=== PATIENT | female | born 1995 | race Caucasian/White ===

== ENCOUNTER 2016-05-01 06:39 | Emergency (ER) | payer MEDICAID ==
[2016-05-01 06:54] VITALS: TEMP 97.9; BMI 31.9
[2016-05-01 07:16] LABS: LEUKOCYTES/URINE 2+ (NEGATIVE); NITRITE/URINE NEG (NEGATIVE); URINE OCCULT BLOOD NEG (NEG/TRACE)
[2016-05-01 07:28] LABS: MPV 7.7 fL (7.4-10.4)
[2016-05-01] MEDS ORDERED: ONDANSETRON HCL 4 MG/2 ML VIAL IV ONE (07:29)
[2016-05-01] MEDS ORDERED: HYDROmorphone 1 MG INJECTION IV ONE (07:29)
[2016-05-01] MEDS ORDERED: LEVOFLOXACIN 750 MG TAB PO ONE (07:30)
[2016-05-01] MEDS ORDERED: NS 1,000 ML IV ONE (07:30)
--- NOTE | 2016-05-01 07:32 | EDPRACDOC ---
- General Information Chief Complaint: Abdominal Pain Stated Complaint: RT SIDE ABD PAIN/NAUSEA Time Seen by Provider: 05/01/16 07:08 Information Source: Patient Mode Of Arrival: Car Home Medications: Home Medications Ciprofloxacin HCl [Cipro] 500 mg PO BID #20 tab 05/01/16 Ondansetron [Zofran Odt] 4 mg PO Q6H PRN #20 tab.rapdis 05/01/16 Oxycodone HCl/Acetaminophen [Percocet 5-325 mg Tablet] 1 each PO Q4 #20 tablet 05/01/16 Allergies/Adverse Reactions: Allergies Allergy/AdvReac Type Severity Reaction Status Date / Time amoxicillin [Amoxicillin] Allergy Rash-Genera Verified 05/01/16 06:52 lized Penicillins Allergy Rash-Genera Verified 05/01/16 06:52 lized Sulfa (Sulfonamide Allergy Rash-Genera Verified 05/01/16 06:52 Antibiotics) lized - History of Present Illness Onset: 1 month HPI: PATIENT PRESENTS C/O ABDOMINAL PAIN RUQ THAT BEGAN MONTHS AGO. INTERMITTENT. ASSOCIATED WITH FOOD. NO PRIOR ABDOMINAL SURGERY. Pain Location: Reports: RUQ Pain Context: Reports: Spontaneous Pain Severity: Mild Pain Quality: Reports: Aching Pain Radiation: Reports: No Radiation Last Menstrual Period: unknown : No (6 weeks post ) Blood Type: O+ Adult Abdominal History: Denies: Abdominal Surgery Female Abdominal History: Denies: Abdominal Surgery Female Associated Signs & Symptoms: Reports: Nausea. Denies: Vomiting, Anorexia , Diarrhea, Melena Oral Intake: Normal Urinary Output: Normal ED Past Medical History - History Reviewed Yes Nurses notes reviewed and agree except as marked Travel Outside of [place] in the Last 3 Months?: No - Patient Medical History Psychological History: Denies: Depression Systemic History: Reports: Anemia - Family Medical History Reports: Diabetes (GRANDPARENTS), Cancer (FATHER), Cardiac Disorders ( GRANDPARENTS). Denies: Hypertension, Stroke - Social Medical History Smoking Status: Never smoker ETOH: None Substance Abuse: None Lives With: Family Lives In: Home EDM Review of Systems - Review of Systems ROS Negative Except as Marked: Yes All systems reviewed and were negative except as marked Constitutional: No Symptoms Reported. negative: Fever, Chills, Weakness, Fatigue, Loss of Appetite Eyes: No Symptoms Reported. negative: Redness, Blurred Vision, Double Vision, Discharge, Pain, Light Sensitive, Photophobia Ears: No Symptoms Reported. negative: Pain, Hearing Loss, Drainage, Ear Pulling Throat: No Symptoms Reported. negative: Pain, Swelling Nose: No Symptoms Reported. negative: Congestion, Bleeding, Discharge, Injection, Swelling, Deformity, Ecchymosis, Tender, Abrasion, Laceration Mouth: No Symptoms Reported. negative: Pain, Drooling Respiratory: No Symptoms Reported. negative: Cough, Brassy Cough, Barky Cough, Shortness of Breath, Wheezing, Hemoptysis Cardiovascular: No Symptoms Reported. negative: Chest Pain, Palpitations, Syncope, Edema, Orthopnea, PND, Skin Mottling, Cyanosis Gastrointestinal: Nausea, Pain. negative: Constipation, Diarrhea, Formula Intolerance, Melena, Vomiting Genitourinary: No Symptoms Reported. negative: Dysuria, Hematuria, Frequency, Discharge, Bleeding, Testicular Pain, Neurological: No Symptoms Reported. negative: Headache, Dizziness, Seizure, Numbness, Weakness, Speech Difficulty, Gait Difficulty Musculoskeletal: No Symptoms Reported. negative: Neck, Chestwall, Ribs, Back, Shoulder, Arm, Elbow, Forearm, Wrist, Hand, Pelvis, Hip, Femur, Knee, Leg, Ankle , Foot Integumentary: No Symptoms Reported. negative: Itching, Rash, Bruising, Wound Allergic/Immunologic: No Symptoms Reported. negative: Hives, Itching Hematologic: No Symptoms Reported. negative: Lymphadenopathy, Easy Bruising, Easy Bleeding Endocrine: No Symptoms Reported. negative: Weight Gain, Weight Loss Psychiatric: No Symptoms Reported. negative: Anxiety, Depression, Hallucinations, Insomnia, Suicidal - Physical Exam Constitutional: Alert (Awake), Distress (MILD) Oriented to: Time, Person, Place Last recorded Vital Signs: Last Vital Signs Temp 97.9 F 05/01/16 06:48 Pulse 65 05/01/16 08:43 Resp 16 05/01/16 08:43 BP 119/73 05/01/16 08:43 Pulse Ox 100 05/01/16 08:43 Oxygen Pulse Oxygen Saturation 100 O2 Device Room Air Oxygen Flow Rate Fraction of Inspired Oxygen ( FIO2) - HEENT Head: Normal ( normocephalic) Eye Exam: Normal (PERRL, EOMI, Sclera white) Oropharynx: Normal (Pharynx:Moist without exudate,Gums-no swelling) Tympanic Membrane: Normal ENT EAC: Normal TMJ: Normal Nose: No Symptoms Reported (septum midline) Neck: Normal (FROM, trachea at midline) - Respiratory/Cardiovascular Respiratory: Normal - CTA (BBS clear to auscultation without adventitious sounds ) Cardiovascular: Normal (RRR without murmur, gallop or rub) - GI Auscultation: Normal (NABS) Palpation: Normal (Soft,No rebound or guarding, non distended) Tenderness: Mild, RUQ. negative: Rebound, Rigidity Bach's Sign: Negative - Bladder: Normal External: Normal Vagina: Discharge (YELLOW) Cervix: Discharge (YELLOE) Uterus: Normal size Adnexa: Bilateral: Normal - Musculoskeletal Back: Normal (Non-Tender) Extremities: Normal (Normal tone, Pulses 2+ No cyanosis or edema, FROM) - Integumentary Skin: Normal, Warm, Dry Lymphatics: Normal (no adenopathy) - Neurologic Memory Impaired: Normal Motor Function: Normal (Normal tone, Pulses 2+ No cyanosis or edema, FROM) Cranial Nerve: Normal (CN II-X11 intact sensation, strength 5/5) Cerebellar: Normal Mood Description: Normal Perception: Normal - Results 05/01/16 07:09 05/01/16 07:09 WBC 10.3 xk/uL (3.8-10.8) 05/01/16 07:09 RBC 5.09 xM/uL (4.20-5.40) 05/01/16 07:09 Hgb 10.3 g/dL (12.0-16.0) L 05/01/16 07:09 Hct 33.7 % (36-47) L 05/01/16 07:09 MCV 66 fL (81-99) L 05/01/16 07:09 MCH 20.3 pg (27-32) L 05/01/16 07:09 MCHC 30.6 g/dl (33-36) L 05/01/16 07:09 RDW 15.5 % (11.5-14.5) H 05/01/16 07:09 Plt Count 336 xk/uL (130-400) 05/01/16 07:09 MPV 7.7 fL (7.4-10.4) 05/01/16 07:09 Neut % (Auto) Cancelled 05/01/16 07:09 Lymph % (Auto) Cancelled 05/01/16 07:09 Towns % (Auto) Cancelled 05/01/16 07:09 Eos % (Auto) Cancelled 05/01/16 07:09 Baso % (Auto) Cancelled 05/01/16 07:09 Absolute Neuts (auto) Cancelled 05/01/16 07:09 Absolute Lymphs (auto) Cancelled 05/01/16 07:09 Seg Neuts % (Manual) 77 % (45-76) H 05/01/16 07:09 Band Neutrophils % 0 % (0-5) 05/01/16 07:09 Lymphocytes % (Manual) 17 % (17-44) 05/01/16 07:09 Monocytes % (Manual) 4 % (0-10) 05/01/16 07:09 Eosinophils % (Manual) 1 % (0-5) 05/01/16 07:09 Basophils % (Manual) 1 % (0-2) 05/01/16 07:09 Absolute Neutrophils 7.93 xk/uL (1.7-8.2) 05/01/16 07:09 Absolute Lymphocytes 1.75 xk/uL (0.65-4.75) 05/01/16 07:09 Platelet Estimate Norm (NORMAL) 05/01/16 07:09 RBC Morphology 3+ micro 2+ hypo 1+ ellipto 1+ polychrom 05/01/16 07:09 RBC Morphology 3+ micro 2+ hypo 1+ ellipto 1+ polychrom 05/01/16 07:09 RBC Morphology 3+ micro 2+ hypo 1+ ellipto 1+ polychrom 05/01/16 07:09 RBC Morphology 3+ micro 2+ hypo 1+ ellipto 1+ polychrom 05/01/16 07:09 Sodium 143 mEq/L (137-146) 05/01/16 07:09 Potassium 3.6 mEq/L (3.5-5.1) 05/01/16 07:09 Chloride 106 mEq/L (98-107) 05/01/16 07:09 Carbon Dioxide 25 mMOL/L (22-33) 05/01/16 07:09 Anion Gap 16 mEq/L (8-16) 05/01/16 07:09 BUN 12 MG/DL (7-17) 05/01/16 07:09 Creatinine 0.60 MG/DL (0.52-1.04) 05/01/16 07:09 Estimated GFR (MDRD) > 60 mL/min (>=60) 05/01/16 07:09 Glucose 108 MG/DL (70-99) H 05/01/16 07:09 Calculated Osmolality 276 MOs/Kg (270-290) 05/01/16 07:09 Calcium 9.1 MG/DL (8.4-10.2) 05/01/16 07:09 Total Bilirubin 0.8 MG/DL (0.2-1.3) 05/01/16 07:09 AST 25 IU/L (14-36) 05/01/16 07:09 ALT 45 IU/L (9-52) 05/01/16 07:09 Alkaline Phosphatase 84 IU/L (38-126) 05/01/16 07:09 Total Protein 7.5 G/DL (6.3-8.2) 05/01/16 07:09 Albumin 4.3 G/DL (3.5-5.0) 05/01/16 07:09 Lipase 64 U/L (23-300) 05/01/16 07:09 Urine Color Yellow 05/01/16 07:00 Urine Clarity Cldy 05/01/16 07:00 Urine pH 5.0 (5.0-8.0) 05/01/16 07:00 Ur Specific [place] 1.030 (1.003-1.035) 05/01/16 07:00 Urine Protein Neg (NEG/TRACE) 05/01/16 07:00 Urine Glucose (UA) Neg (NEGATIVE) 05/01/16 07:00 Urine Ketones Neg (NEGATIVE) 05/01/16 07:00 Urine Occult Blood Neg (NEG/TRACE) 05/01/16 07:00 Urine Nitrite Neg (NEGATIVE) 05/01/16 07:00 Urine Bilirubin Neg (NEGATIVE) 05/01/16 07:00 Urine Urobilinogen <2.0 MG/DL (0-1) 05/01/16 07:00 Ur Leukocyte Esterase 2+ (NEGATIVE) H 05/01/16 07:00 Urine RBC 5-10 (0-5) H 05/01/16 07:00 Urine WBC 10-20 (0-5) H 05/01/16 07:00 Ur Epithelial Cells 4+ 05/01/16 07:00 Urine Bacteria 3+ (NEG/FEW) H 05/01/16 07:00 Urine Mucus Large (NEG/OCC) 05/01/16 07:00 Urine Test Neg (NEGATIVE) 05/01/16 07:00 Lab Results 05/01/16 05/01/16 05/01/16 07:09 07:09 07:00 WBC 10.3 RBC 5.09 Hgb 10.3 L Hct 33.7 L MCV 66 L MCH 20.3 L MCHC 30.6 L RDW 15.5 H Plt Count 336 MPV 7.7 Neut % (Auto) Cancelled Lymph % (Auto) Cancelled Towns % (Auto) Cancelled Eos % (Auto) Cancelled Baso % (Auto) Cancelled Absolute Neuts (auto) Cancelled Absolute Lymphs (auto) Cancelled Seg Neuts % (Manual) 77 H Band Neutrophils % 0 Lymphocytes % (Manual) 17 Monocytes % (Manual) 4 Eosinophils % (Manual) 1 Basophils % (Manual) 1 Absolute Neutrophils 7.93 Absolute Lymphocytes 1.75 Platelet Estimate Norm RBC Morphology 1+ polychrom Sodium 143 Potassium 3.6 Chloride 106 Carbon Dioxide 25 Anion Gap 16 BUN 12 Creatinine 0.60 Estimated GFR (MDRD) > 60 Glucose 108 H Calculated Osmolality 276 Calcium 9.1 Total Bilirubin 0.8 AST 25 ALT 45 Alkaline Phosphatase 84 Total Protein 7.5 Albumin 4.3 Lipase 64 Urine Color Yellow Urine Clarity Cldy Urine pH 5.0 Ur Specific [place] 1.030 Urine Protein Neg Urine Glucose (UA) Neg Urine Ketones Neg Urine Occult Blood Neg Urine Nitrite Neg Urine Bilirubin Neg Urine Urobilinogen <2.0 Ur Leukocyte Esterase 2+ H Urine RBC 5-10 H Urine WBC 10-20 H Ur Epithelial Cells 4+ Urine Bacteria 3+ H Urine Mucus Large Urine Test 05/01/16 07:00 WBC RBC Hgb Hct MCV MCH MCHC RDW Plt Count MPV Neut % (Auto) Lymph % (Auto) Towns % (Auto) Eos % (Auto) Baso % (Auto) Absolute Neuts (auto) Absolute Lymphs (auto) Seg Neuts % (Manual) Band Neutrophils % Lymphocytes % (Manual) Monocytes % (Manual) Eosinophils % (Manual) Basophils % (Manual) Absolute Neutrophils Absolute Lymphocytes Platelet Estimate RBC Morphology Sodium Potassium Chloride Carbon Dioxide Anion Gap BUN Creatinine Estimated GFR (MDRD) Glucose Calculated Osmolality Calcium Total Bilirubin AST ALT Alkaline Phosphatase Total Protein Albumin Lipase Urine Color Urine Clarity Urine pH Ur Specific [place] Urine Protein Urine Glucose (UA) Urine Ketones Urine Occult Blood Urine Nitrite Urine Bilirubin Urine Urobilinogen Ur Leukocyte Esterase Urine RBC Urine WBC Ur Epithelial Cells Urine Bacteria Urine Mucus Urine Test Neg Decision Time to Discharge: 08:58 - Departure Yes I personally saw and evaluated the patient. Disposition: Home Condition: Good Final Diagnosis: Biliary colic, Cervicitis UTI (urinary tract infection) Qualifiers: Urinary tract infection type: acute cystitis Hematuria presence: without hematuria Qualified Code(s): N30.00 - Acute cystitis without hematuria Instructions: Acute Abdominal Pain (ED), Urinary Tract Infection in Women (ED) , Dysuria, Biliary Colic (ED) Education/Counseling Given To: Patient Education/Counseling Given Regarding: Diagnosis, Treatment, Prognosis, Follow Up Referrals: Noah Pena MD [Primary Care Provider] - One Week King Marx MD [Staff Physician] - One Week Prescriptions: Ciprofloxacin HCl [Cipro] 500 mg PO BID #20 tab Ondansetron [Zofran Odt] 4 mg PO Q6H PRN #20 tab.rapdis PRN Reason: Nausea/Vomiting Oxycodone HCl/Acetaminophen [Percocet 5-325 mg Tablet] 1 each PO Q4 #20 tablet Additional Instructions: NO FATTY FOODS, FOLLOW UP WITH DR. PENA FOR HIDA SCAN
[2016-05-01 07:33] LABS: BLOOD UREA NITROGEN 12 MG/DL (7-17); CALCIUM 9.1 MG/DL (8.4-10.2); CALCULATED OSMOLALITY 276 MOs/Kg (270-290); CHLORIDE 106 mEq/L (98-107); GLUCOSE 108 MG/DL (70-99); SODIUM LEVEL 143 mEq/L (137-146); TOTAL PROTEIN 7.5 G/DL (6.3-8.2)
[2016-05-01 08:18] LABS: SEG NEUTROPHIL 77 % (45-76)
--- NOTE | 2016-05-01 08:51 | DIRPT ---
CLINICAL DATA: Right upper quadrant abdominal pain for 4 weeks, worsening last night. EXAM: US ABDOMEN LIMITED - RIGHT UPPER QUADRANT COMPARISON: 07/21/2004 FINDINGS: Gallbladder: No gallstones or wall thickening visualized. No sonographic Bach sign noted by cancer program consultant. Common bile duct: Diameter: 3 mm. Where visualized, no filling defect. Liver: No focal lesion identified. Within normal limits in parenchymal echogenicity. IMPRESSION: Normal right upper quadrant ultrasound. Electronically Signed By: Geronimo Gudino M.D. On: 05/01/2016 08:49
[2016-05-01] MEDS ORDERED: AZITHROMYCIN 250 MG TAB PO ONE (09:31)
[2016-05-01] MEDS ORDERED: CEFTRIAXONE 250 MG VIAL IM ONE (09:31)
[2016-05-01 10:17] VITALS: BP 112/75; PULSE 64
[2016-05-02 14:38] LABS: CHLAMY BY NUCLEIC ACID AMP Negative (Negative)
[2016-05-02 16:13] LABS: GC BY NUCLEIC ACID AMP Negative (Negative)
== END 2016-05-01 10:12 | disposition home or self-care (01) ==
LOC: ED 06:39
DX: O26.63 Liver and biliary tract disorders in the puerperium (principal); K80.50 Calculus of bile duct without cholangitis or cholecystitis without obstruction; O86.22 Infection of bladder following delivery; N30.00 Acute cystitis without hematuria; O86.11 Cervicitis following delivery
CPT/HCPCS: 36415; 76705; 80053; 81001; 81025; 83690; 85007; 85027; 87210; 87220; 87491; 87591; 96361; 96372; 96374; 96375; 99284; J0696; J1170; J2405; J3490

== ENCOUNTER → 2016-05-31 | Day surgery (SDC) | payer MEDICAID ==
[2016-05-01 06:54] VITALS: BMI 31.9
[~2016-05-31] MED LIST: BUPIVACAINE 0.5% 30 ML VIAL ONE; FENTANYL 100 MCG/2 ML VIAL IV PRN; GLYCOPYRROLATE 1 MG VIAL IM ONE; HYDROmorphone 1 MG INJECTION IV PRN; ISOVUE-300 (61%) 50 ML ONE; LABETALOL 20 MG/4 ML SYRINGE IV PRN; MEPERIDINE 25 MG/ML TUBEX IV PRN; METOCLOPRAMIDE 10 MG/2 ML VIAL IV ONE; NIMBEX 10 MG/5 ML VIAL IV ONE; ONDANSETRON HCL 4 MG ODT TAB PO PRN; ONDANSETRON HCL 4 MG/2 ML VIAL IV PRN; PROMETHAZINE 25 MG/ML VIAL IV PRN; hydrALAZINE 20 MG/ML VIAL IV PRN
[2016-05-31 07:55] VITALS: BP 141/79; PULSE 81; TEMP 98
[2016-05-31] MEDS: Clindamycin 600 mg/D5W 50 ml 600 MG/50 ML IVB IV ONE ×2 (08:34→09:05)
--- NOTE | 2016-05-31 08:49 | HIM.ANES ---
Anesthesia Evaluation & Plan Diagnoses: RIGHT UPPER QUADRANT PAIN (05/31/16) Consented Procedure: LAPAROSCOPIC CHOLECYSTECTOMY WITH INTRAOPERTIVE CHOLANGIOGRAM-POSSIBLE OPEN INCISION - Focused Review of Systems Now: No Cardiac History: No: Hx Cardiac Disorders HEENT: No: Other HEENT Problems Gastrointestinal: Yes: Hx Gastrointestinal Disorders Neurological/Musculoskeletal: No: Hx Neurological Disorders Psychological: No Hx Mental/Emotional Disorders Blood/Autoimmune: Yes: Hx Anemia (? RESOLVED) No: Hx Blood Transfusions, Hx AIDS, Hx Hepatitis (type) Smoking Status: Never smoker - Focused Physical Exam NPO since: 05/30/16 2300 Mallampati: Class III Thyromental Distance: Greater than 3 Neck: Full Range of Motion Dental: Normal - no significant findings Cardiovascular/Chest: Normal Respiratory: Lungs clear Any problems with anesthesia, including nausea and vomiting?: No (NEVER HAD ANESTHESIA-ONLY SEDATION) Any relatives with a history of Malignant Hyperthermia?: No Beta Karen given (if appropriate): N/A Other: Problem List Problem Status Onset 39 weeks gestation of Acute Acute urinary tract infection Acute Lumbar sprain Acute care following vaginal delivery Acute Single live Acute Uterine contractions Acute Vaginal delivery Acute PT/PTT/INR/ Urine Test Neg (NEGATIVE) 05/31/16 07:40 Allergies Allergy/AdvReac Type Severity Reaction Status Date / Time amoxicillin [Amoxicillin] Allergy Rash-Genera Verified 05/31/16 08:08 lized Penicillins Allergy Rash-Genera Verified 05/31/16 08:08 lized Sulfa (Sulfonamide Allergy Rash-Genera Verified 05/31/16 08:08 Antibiotics) lized Home Medications Medication Instructions Recorded Last Taken Type Ondansetron [Zofran Odt] 4 mg PO Q6H PRN #20 tab.rapdis 05/01/16 05/29/16 Rx Norelgestromin/Ethin.estradiol 1 patch TOP WEEKLY 05/31/16 05/28/16 History [Xulane Patch] Oxycodone HCl/Acetaminophen 1 each PO Q4 PRN 05/31/16 05/24/16 History [Percocet 5-325 mg Tablet] Height and Weight Patient's height 5 ft 11 in Patient's weight 228 lb BMI 31.9 Vital Signs Temperature 98.0 F 05/31/16 08:48 Pulse Rate 81 05/31/16 08:48 Respiratory Rate 18 05/31/16 08:48 Blood Pressure 141/79 02/03/17 08:48 Pulse Oxygen Saturation 99 05/31/16 08:48 - Anesthetic Plan Anesthesia Type: General ASA Class: 2 -: I have examined this patient and reviewed the medical record. The patient has been assessed prior to anesthesia. Risks and benefits of anesthesia and anesthetic technique options have been discussed and all questions answered. The patient accepts the risk and desires me to proceed with the planned anesthetic.
--- NOTE | 2016-05-31 08:49 | SC.ANESPOS ---
Post-Anesthesia Note LOC: [facility] on Calling Post-Anesthesia Assessment: Awake, Returned to Baseline, Hemodynamically Stable , Pain Control Adequate Phase I & II Recovery Complete: Yes Apparent Anesthesia Complication: No : N - Vital Signs Blood Pressure: 141/79 Pulse: 81 Resp Rate: 18 O2 Sat: 99 Temp: 98.0 F
--- NOTE | 2016-05-31 09:15 | PCM.SURGRO ---
05/31/16 at 0913. According to the hat marker, LONDON Woo and the ACRYLIC FABRICATOR, Kraig, the patient began to have a panic attack on arrival to the operating room and demanded to be returned to the same day surgery area. I spoke with the patient in person. She appeared calm, rational and with no evidence of distress. She stated that she did not want to have surgery today and that she will call the office to reschedule. All questions were answered. Follow up in the office when the patient calls.
== END ==
LOC: SDC 07:31
PROVIDERS: ATTEND Surgery
DX: R10.11 Right upper quadrant pain (principal); Z53.29 Procedure and treatment not carried out because of patient's decision for other reasons
CPT/HCPCS: 81025; J2765; J3490